=== PATIENT | female | born 1970 | race Hispanic/Latino ===

== ENCOUNTER 2018-10-22 19:15 | Outpatient (CLI) | payer MEDICAID ==
[2018-10-22] MEDS ORDERED: LACTATED RINGERS 1,000 ML IV ONE (20:11)
[2018-10-22 20:54] LABS: Bacteria,Urine 2+ /HPF (Negative); Bilirubin,Urine NEG (Negative); Blood,Urine NEG (Negative); Color,Urine Yellow (Yellow); Mucus,Urine FEW /HPF; Protein,Urine <15 mg/dL mg/dL (Negative); Urobilinogen,Urine < 2.0 mg/dL (<2.0)
[2018-10-22 23:49] VITALS: BP 91/54
--- NOTE | 2018-10-23 00:54 | Ultrasound Report ---
PROCEDURE: US OB LIMITED TECHNIQUE: Limited obstetrical ultrasound HISTORY: leaking fluid COMPARISONS: No prior for comparison FINDINGS: There is a single viable intrauterine in cephalic presentation. The heart rate is 125 bpm. The amniotic fluid index is mildly elevated at 25.9 cm. Largest pocket of fluid measures approximately 7.4 cm. No measurements obtained on this examination for dating. No evaluation of the anatomy. IMPRESSION: Limited obstetrical ultrasound. Single viable intrauterine in cephalic presentation. Amniotic fluid index is mildly elevated at 25.9 cm.. This document is electronically signed by Fabián Walters MD., October 23 2018 12:52:08 AM ET
[2018-10-23 01:18] LABS: Cannabinoid Screen,Urine PRESUMPTIVE NEGATIVE; Cocaine Screen,Urine PRESUMPTIVE NEGATIVE; Methadone Screen,Urine PRESUMPTIVE NEGATIVE; Opiate Screen,Urine PRESUMPTIVE NEGATIVE
[2018-10-23 02:48] LABS: Amphetamine Screen,Urine PRESUMPTIVE POSITIVE; Benzodiazepines Screen,Urine PRESUMPTIVE POSITIVE
== END 2018-10-23 00:20 | disposition home or self-care (01) ==
LOC: TRG 19:15
PROVIDERS: ATTEND Obstetrics & Gynecology
DX: O47.03 False labor before 37 completed weeks of gestation, third trimester (principal); O26.893 Other specified pregnancy related conditions, third trimester; M54.9 Dorsalgia, unspecified; Z3A.28 28 weeks gestation of pregnancy
CPT/HCPCS: 76815; 80307; 81001

== ENCOUNTER 2018-11-29 16:41 | Outpatient (CLI) | payer MEDICAID ==
[2018-11-29] MEDS ORDERED: LACTATED RINGERS 500 ML IV ONE (17:23)
[2018-11-29 18:36] LABS: Hematocrit 29.6 % (30.3-42.9); Hemoglobin 10.1 gm/dl (10.1-14.3); Mean Corpuscular HGB Conc 34 % (30-34); Mean Corpuscular Volume 96 fl (79-97); Platelet Count 165 K/mm3 (140-440); Red Blood Count 3.09 M/mm3 (3.65-5.03); Red Cell Distribution Width 13.2 % (13.2-15.2)
[2018-11-29 18:39] LABS: Bilirubin,Urine NEG (Negative); Blood,Urine NEG (Negative); Color,Urine Yellow (Yellow); Mucus,Urine FEW /HPF; Protein,Urine <15 mg/dL mg/dL (Negative); Urobilinogen,Urine < 2.0 mg/dL (<2.0)
[2018-11-29 18:45] LABS: Cannabinoid Screen,Urine PRESUMPTIVE NEGATIVE; Cocaine Screen,Urine PRESUMPTIVE NEGATIVE; Opiate Screen,Urine PRESUMPTIVE NEGATIVE
[2018-11-29 19:00] VITALS: BP 114/60
[2018-11-29 19:17] LABS: Amphetamine Screen,Urine PRESUMPTIVE POSITIVE; Benzodiazepines Screen,Urine PRESUMPTIVE POSITIVE; Methadone Screen,Urine PRESUMPTIVE POSITIVE
[2018-11-29 19:19] LABS: Alanine Aminotransferase 19 units/L (7-56); Uric Acid 4.1 mg/dL (3.5-7.6)
== END 2018-11-29 19:24 | disposition home or self-care (01) ==
LOC: TRG 16:41
PROVIDERS: ATTEND Obstetrics & Gynecology
DX: O47.03 False labor before 37 completed weeks of gestation, third trimester (principal); O13.3 Gestational [pregnancy-induced] hypertension without significant proteinuria, third trimester; Z90.89 Acquired absence of other organs; Z3A.34 34 weeks gestation of pregnancy
CPT/HCPCS: 36415; 59025; 80307; 81001; 82565; 83615; 84450; 84460; 84550; 85027

== ENCOUNTER 2018-12-13 17:17 | Outpatient (CLI) | payer MEDICAID ==
[2018-12-13] MEDS ORDERED: LACTATED RINGERS 500 ML IV ONE (17:50)
[2018-12-13 17:54] VITALS: BP 127/87
[2018-12-13 18:53] LABS: Benzodiazepines Screen,Urine PRESUMPTIVE NEGATIVE; Cannabinoid Screen,Urine PRESUMPTIVE NEGATIVE; Cocaine Screen,Urine PRESUMPTIVE NEGATIVE; Opiate Screen,Urine PRESUMPTIVE NEGATIVE
[2018-12-13 19:08] LABS: Bacteria,Urine 1+ /HPF (Negative); Bilirubin,Urine NEG (Negative); Blood,Urine NEG (Negative); Color,Urine Yellow (Yellow); Mucus,Urine FEW /HPF; Protein,Urine <15 mg/dL mg/dL (Negative); Urobilinogen,Urine < 2.0 mg/dL (<2.0)
[2018-12-13 19:16] LABS: Amphetamine Screen,Urine PRESUMPTIVE POSITIVE; Methadone Screen,Urine PRESUMPTIVE POSITIVE
--- NOTE | 2018-12-13 19:57 | Ultrasound Report ---
PROCEDURE: US OB BPP WO NON-STRESS TECHNIQUE: Limited ultrasound for BPP HISTORY: nonreactive NST COMPARISONS: Ultrasound OB 10/22/2018 FINDINGS: clinical Age : 36W 0 D Biophysical profile scoring [2]movement [2]tone [2]breathing [2]fluid 8/8 overall score Presentation: Cephalic Activity: Monitored Placental location: Anterior towards the fundus Cardiac motion: 151 BPM using M-mode doppler Amniotic Fluid Volume: Adequate IMPRESSION: Single viable at 36 weeks 0 days with 8/8 biophysical profile score This document is electronically signed by Cheri Hopkins MD., Dec 13 2018 07:55:27 PM ET
== END 2018-12-13 19:55 | disposition home or self-care (01) ==
LOC: TRG 17:17
PROVIDERS: ATTEND Obstetrics & Gynecology
DX: O47.03 False labor before 37 completed weeks of gestation, third trimester (principal); O13.3 Gestational [pregnancy-induced] hypertension without significant proteinuria, third trimester; Z3A.36 36 weeks gestation of pregnancy
CPT/HCPCS: 59025; 76819; 80307; 81001

== ENCOUNTER 2018-12-20 21:52 | Outpatient (CLI) | payer MEDICAID ==
[2018-12-20 23:08] LABS: Hematocrit 34.7 % (30.3-42.9); Mean Corpuscular HGB Conc 35 % (30-34); Mean Corpuscular Volume 94 fl (79-97); Platelet Count 150 K/mm3 (140-440); Red Blood Count 3.67 M/mm3 (3.65-5.03); Red Cell Distribution Width 12.7 % (13.2-15.2)
[2018-12-20 23:17] LABS: Bilirubin,Urine NEG (Negative); Blood,Urine NEG (Negative); Color,Urine Yellow (Yellow); Mucus,Urine FEW /HPF; Protein,Urine <15 mg/dL mg/dL (Negative); Urobilinogen,Urine < 2.0 mg/dL (<2.0)
[2018-12-20 23:38] LABS: Alanine Aminotransferase 23 units/L (7-56)
[2018-12-20] MEDS ORDERED: LACTATED RINGERS 1,000 ML IV SCH (23:45)
[2018-12-20 23:49] LABS: Benzodiazepines Screen,Urine PRESUMPTIVE NEGATIVE; Cannabinoid Screen,Urine PRESUMPTIVE NEGATIVE; Cocaine Screen,Urine PRESUMPTIVE NEGATIVE; Opiate Screen,Urine PRESUMPTIVE NEGATIVE
--- NOTE | 2018-12-21 00:04 | Ultrasound Report ---
PROCEDURE: US OB BPP WO NON-STRESS TECHNIQUE: Real-time limited sonographic examination was performed for evaluation of presentation fo r each fetus with image documentation (1 or more fetuses). HISTORY: well being COMPARISONS: None . FINDINGS: breathing movements: 2. movements: 2. posture and tone: 2. Qualitative amniotic fluid volume: 2. Total score 8/8. IMPRESSION: Normal biophysical profile. This document is electronically signed by Deep Spann MD., Dec 21 2018 12:03:05 AM ET
--- NOTE | 2018-12-21 00:04 | Ultrasound Report ---
PROCEDURE: US OB LIMITED TECHNIQUE: Real-time limited sonographic examination was performed for evaluation of presentation fo r each fetus with image documentation (1 or more fetuses). HISTORY: well being COMPARISONS: None . FINDINGS: Fetus is in a cephalic presentation. Heart rate is 129 bpm. Placenta is anterior and grade 1 without evidence of previa. Amniotic fluid index is 9.9 cm which is within normal limits. IMPRESSION: Fetus is in a cephalic presentation. Heart rate is 129 bpm. Placenta is anterior and grade 1 without evidence of previa. Amniotic fluid index is 9.9 cm which is within normal limits. This document is electronically signed by Deep Spann MD., Dec 21 2018 12:02:01 AM ET
[2018-12-21 00:08] LABS: Amphetamine Screen,Urine PRESUMPTIVE POSITIVE; Methadone Screen,Urine PRESUMPTIVE POSITIVE
[2018-12-21 00:09] VITALS: BP 107/63
== END 2018-12-20 22:00 | disposition home or self-care (01) ==
LOC: TRG 21:52 → EEVIPCON 21:52 → TRG 22:00
PROVIDERS: ATTEND Obstetrics & Gynecology
DX: O47.03 False labor before 37 completed weeks of gestation, third trimester (principal); O09.523 Supervision of elderly multigravida, third trimester; O99.343 Other mental disorders complicating pregnancy, third trimester; F41.9 Anxiety disorder, unspecified; F32.9 Major depressive disorder, single episode, unspecified; Z3A.36 36 weeks gestation of pregnancy
CPT/HCPCS: 36415; 59025; 76815; 76819; 80307; 81001; 82565; 83615; 84450; 84460; 84550; 85027; J7120

== ENCOUNTER 2018-12-24 18:36 | Inpatient (IN) | payer MEDICAID ==
[2018-12-24] MEDS ORDERED: LACTATED RINGERS 1,000 ML ONE (19:41)
[2018-12-24] MEDS ORDERED: LACTATED RINGERS 1,000 ML IV ONE (19:57)
[2018-12-24] MEDS ORDERED: PITOCin/NS 20 UNIT/1000ML DRIP 20 UNITS/1,000 ML BAG IV SCH (20:00)
[2018-12-24] MEDS ORDERED: ZOFRAN IV PRN (20:00)
[2018-12-24] MEDS ORDERED: BRETHINE SUB-Q PRN (20:00)
[2018-12-24] MEDS ORDERED: PITOCin/NS 30 UNIT/500ML 30 UNITS/500 ML BAG IV SCH (20:00)
[2018-12-24] MEDS ORDERED: SUBLIMAZE IV PRN (20:00)
[2018-12-24] MEDS ORDERED: MINERAL OIL PO PRN (20:00)
[2018-12-24] MEDS ORDERED: XYLOCAINE 2% INFILTRATI ONE (20:00)
[2018-12-24] MEDS ORDERED: LACTATED RINGERS 1,000 ML IV SCH (20:00)
--- NOTE | 2018-12-24 20:19 | History and Physical Report ---
History of Present Illness Date of examination: 12/24/18 (sent to Triage from [facility] for NST and eval of poss ROM) History of present illness: EDC Confirmation: 01/11/2019 Gestational Age: 7 4/7 weeks Past History : 6 Term Births: 2 Premature Births: 0 Living Children: 2 Para: 2 Mult. Births: 0 Prev : 0 Aborta: 3 Elect. Ab: 2 Spont. Ab: 1 # 1 Delivery date: 1988 Delivery type: TAB # 2 Delivery date: 1989 Delivery type: TAB # 3 Delivery date: 1999 Delivery type: SAB # 4 Delivery date: 02/08 Weeks Gestation: 40 Delivery type: vaginal Hours of labor: 12 Infant Sex: male weight: 8.38 Comments: Retained placenta # 5 Delivery date: 09/04/2008 Weeks Gestation: 40 Delivery type: Vaginal Hours of labor: 4 Anesthesia type: IV medication Delivery location: [facility] Infant Sex: male weight: 7.75 Comments: Patient on meethadone treatment throughout Past Medical History: Endometriosis chronic back pain hx drug abuse Past Surgical History: spinal fusion 05/2017 D&C - 2003 Septum repair - 1990 T&A 1974 Vaginal cyst removed 2004 abdominal surgery to for endometrosis - 2008 Past Medical History Surgery (Non-projection printer): spinal fusion 05/2017 D&C - 2003 Septum repair - 1990 T&A 1974 Vaginal cyst removed 2004 abdominal surgery to for endometrosis - 2008 Abnormal PAP: negative Social Hx: single Infection History Hx of STD: none HIV Risk Eval: low risk Hepatitis B Risk Eval: low risk Personal hx. of genital herpes: no Partner hx. of genital herpes: no Rash, Viral, or Febrile illness since last LMP? no Varicella/Chicken Pox Status: Previous Disease Genetic History ADVANCED MATERNAL AGE Congenital Heart Defect: Mom: no Dad: no Betzaida Disease: Mom: no Dad: no Thalassemia Mom: no Dad: no Neural Tube Defect Mom: no Dad: no Down's Syndrome Mom: no Dad: no Rm-Sachs Mom: no Dad: no Sickle Cell Disease/Trait Mom: no Dad: no Hemophilia Mom: no Dad: no Muscular Dystrophy Mom: no Dad: no Cystic Fibrosis Mom: no Dad: no [place] Chorea Mom: no Dad: no Mental Retardation Mom: no Dad: no Fragile X Mom: no Dad: no Other Genetic/Chromosomal Disorder Mom: no Dad: no Child w/other defect Mom: no Dad: no Enviromental Exposures Xray Exposure: no Medication, drug, or alcohol use since LMP: no Chemical/Other Exposure: no Exposure to Cat Liter: no Hx of Parvovirus (Fifth Disease): no Occupational Exposure to Children: none Active Medications (reviewed today): ZITHROMAX Z-DARIUSZ 250 MG ORAL TABLET (AZITHROMYCIN) 2 tabs po then 1 po qd Current Allergies (reviewed today): No known allergies Past History - Obstetrical History Expected Date of Delivery: 01/11/19 Actual Gestation: 37 Week(s) 3 Day(s) : 6 Para: 2 Hx # Term Pregnancies: 2 Number of Pregnancies: 0 Spontaneous Abortions: 1 Induced : 2 Number of Living Children: 2 Medications and Allergies Allergies Allergy/AdvReac Type Severity Reaction Status Date / Time erythromycin base Allergy Vomiting Verified 02/08/18 14:16 [From E-Mycin] sulfamethoxazole Allergy Swelling Verified 02/08/18 14:16 [From Bactrim] sumatriptan [From Imitrex] Allergy Unknown Verified 12/13/18 17:50 trimethoprim [From Bactrim] Allergy Swelling Verified 02/08/18 14:16 Home Medications Medication Instructions Recorded Confirmed Last Taken Type Butalb/Acetaminophen/Caffeine 1 cap PO Q6HR PRN 02/08/18 12/24/18 Unknown History [Fioricet 50-300-40 mg CAP] Aspirin [Aspir-Low] 1 tab PO DAILY 10/23/18 12/24/18 12/24/18 History Vit,Calc76/Iron/Folic 1 tab PO DAILY 10/23/18 12/24/18 12/24/18 History [Pnv 29-1 Tablet] Sertraline HCl [Zoloft] 50 mg PO BID 10/23/18 12/24/18 12/24/18 History Active Meds: Active Medications Lactated Ringer's (Lactated Ringers) 1,000 mls @ 999 mls/hr IV BOLUS ONE Stop: 12/24/18 20:57 - Vital Signs Vital signs: Vital Signs Pulse BP 90 109/74 12/24/18 19:16 12/24/18 19:16 Temp Pulse Resp BP Pulse Ox 98.6 F 90 18 109/74 12/24/18 19:21 12/24/18 19:21 12/24/18 19:21 12/24/18 19:21 - Physical Exam Breasts: Positive: deferred Cardiovascular: Regular rate, Normal S1, Normal S2 Lungs: Positive: Normal air movement Abdomen: Positive: normal appearance, soft, normal bowel sounds. Negative: distention, tenderness Genitourinary (Female): Positive: normal external genitalia Vulva: both: normal Vagina: Positive: normal moisture. Negative: discharge Cervix: Negative: lesion, discharge Uterus: Positive: normal size, normal contour Adnexa: both: normal Anus/Rectum: Positive: normal perianal skin, heme negative. Negative: rectal mass, hemorrhoids Extremities: Positive: normal Deep Tendon Reflex Grade: Normal +2 - Obstetrical FHR: category 2 (no decels FHR no variability) Uterine Contraction Monitor Mode: External Cervical Dilatation: 1 Cervical Effacement Percentage: 50 station: -4 Uterine Contraction Pattern: Irregular Uterine Tone Measurement Phase: Resting Uterine Contraction Intensity: Mild Results All other labs normal. GBS POSITIVE HBsAg Screen Negative Negative *1 RPR Non Reactive Non Reactive *2 Rubella Antibodies, IgG 24.20 index Immune >0.99 *3 Non-immune <0.90 Equivocal 0.90 - 0.99 Immune >0.99 ABO Grouping O *4 Rh Factor Positive *5 Please note: Prior records for this patient's ABO / Rh type are not available for additional verification. Antibody Screen Negative Negative *6 WBC 6.5 x10E3/uL 3.4-10.8 *7 RBC [L] 3.71 x10E6/uL 3.77-5.28 *8 Hemoglobin 11.7 g/dL 11.1-15.9 *9 Hematocrit 34.0 % 34.0-46.6 *10 MCV 92 fL 79-97 *11 MCH 31.5 pg 26.6-33.0 *12 MCHC 34.4 g/dL 31.5-35.7 *13 RDW 12.5 % 12.3-15.4 *14 Platelets 226 x10E3/uL 150-379 *15 Neutrophils 54 % Not Estab. *16 Lymphs 37 % Not Estab. *17 Monocytes 6 % Not Estab. *18 Eos 2 % Not Estab. *19 Basos 1 % Not Estab. *20 ! Immature Cells <No Reported Value> *21 Neutrophils (Absolute) 3.5 x10E3/uL 1.4-7.0 *22 Lymphs (Absolute) 2.4 x10E3/uL 0.7-3.1 *23 Monocytes(Absolute) 0.4 x10E3/uL 0.1-0.9 *24 Eos (Absolute) 0.1 x10E3/uL 0.0-0.4 *25 Baso (Absolute) 0.0 x10E3/uL 0.0-0.2 *26 ! Immature Granulocytes 0 % Not Estab. *27 ! Immature Grans (Abs) 0.0 x10E3/uL 0.0-0.1 *28 ! NRBC <No Reported Value> *29 Hematology Comments: <No Reported Value> *30 Tests: (2) Panel 264450 ([id number]) HIV Screen 4th Generation wRfx Non Reactive Non Reactive *31 Tests: (3) HCV Ab w/Rflx to Verification (751903) ! HCV Ab <0.1 s/co ratio 0.0-0.9 *32 Tests: (4) Comment: (266403) ! Comment: SPRCS *33 Non reactive HCV antibody screen is consistent with no HCV infection, unless recent infection is suspected or other evidence exists to indicate HCV infection. Tests: (5) Urine Culture, Routine (263331) Urine Culture, Routine Final report *34 Tests: (6) Result (025603) ! Result 1 No growth *35 Assessment and Plan 48yo @ 37w3d Non reassuring evaluation. Pt has a hx of PIH, drug abuse- now on methadone, GBS+. All orders in EMR. aware of admission. - Patient Problems (1) Non-reassuring status Onset Date: ~12/24/18 Current Visit: Yes Status: Acute Plan to address problem: Pt had an [facility] visit today. Her BPP 6/8 Zero for breathing. MARYAM 15. sent pt to L&D for NST. Non reactive. Spoke with she recommends delivery. (2) Methadone maintenance treatment complicating in third trimester Onset Date: ~12/24/18 Current Visit: Yes Status: Acute Plan to address problem: Pt takes her dose in the PM will order her medication (3) Elevated blood-pressure reading, without diagnosis of hypertension Onset Date: ~12/24/18 Current Visit: Yes Status: Acute Plan to address problem: Pt has a hx of PreE. 24hr urine collected by [facility] results pending Pt has had elevated BPs. PIH labs ordered. (4) Group B Streptococcus carrier state affecting Onset Date: ~12/24/18 Current Visit: Yes Status: Acute Plan to address problem: Will start ABX per protocol when pt is in active labor for GBS+
[2018-12-24 21:18] LABS: Benzodiazepines Screen,Urine PRESUMPTIVE NEGATIVE; Cannabinoid Screen,Urine PRESUMPTIVE NEGATIVE; Cocaine Screen,Urine PRESUMPTIVE NEGATIVE; Opiate Screen,Urine PRESUMPTIVE NEGATIVE
[2018-12-24 21:21] LABS: Bilirubin,Urine NEG (Negative); Blood,Urine NEG (Negative); Color,Urine Yellow (Yellow); Protein,Urine <15 mg/dL mg/dL (Negative); Urobilinogen,Urine < 2.0 mg/dL (<2.0)
[2018-12-24 21:27] LABS: Alanine Aminotransferase 18 units/L (7-56); Uric Acid 5.9 mg/dL (3.5-7.6)
[2018-12-24 21:37] LABS: Amphetamine Screen,Urine PRESUMPTIVE POSITIVE; Methadone Screen,Urine PRESUMPTIVE POSITIVE
[2018-12-24] MEDS ORDERED: AMBIEN PO PRN (21:54)
[2018-12-24] MEDS ORDERED: CERVIDIL VG ONE (22:00)
[2018-12-24 22:06] LABS: Basophils % (Auto) 0.5 % (0.0-1.8); Eosinophils # (Auto) 0.1 K/mm3 (0.0-0.4); Eosinophils % (Auto) 0.8 % (0.0-4.3); Hematocrit 31.1 % (30.3-42.9); Hemoglobin 10.9 gm/dl (10.1-14.3); Lymphocytes # (Auto) 1.8 K/mm3 (1.2-5.4); Lymphocytes % (Auto) 21.6 % (13.4-35.0); Mean Corpuscular HGB Conc 35 % (30-34); Mean Corpuscular Volume 95 fl (79-97); Monocytes # (Auto) 0.6 K/mm3 (0.0-0.8); Monocytes % (Auto) 7.3 % (0.0-7.3); Platelet Count 139 K/mm3 (140-440); Red Blood Count 3.27 M/mm3 (3.65-5.03)
[2018-12-25] MEDS ORDERED: AMPICILLIN/NS 2 GM/100 ML 2 GM/100 ML BAG IV ONE ×2 (00:19→01:00)
[2018-12-25] MEDS ORDERED: AMPICILLIN 2 GM in NACL 0.9% 50 ML IV ONE (00:38)
[2018-12-25] MEDS ORDERED: BENADRYL PO PRN (01:26)
[2018-12-25] MEDS ORDERED: PHENERGAN PO PRN (01:26)
[2018-12-25] MEDS ORDERED: ZOFRAN IV PRN (01:26)
[2018-12-25] MEDS ORDERED: TYLENOL PO PRN (01:26)
[2018-12-25] MEDS ORDERED: LANSINOH TP PRN (01:26)
[2018-12-25] MEDS ORDERED: NORCO 5/325 PO PRN (01:26)
[2018-12-25] MEDS ORDERED: DULCOLAX PR PRN (01:26)
[2018-12-25] MEDS ORDERED: MILK OF MAGNESIA PO PRN (01:26)
--- NOTE | 2018-12-25 01:38 | Procedure Note ---
OB Delivery Note - Delivery Date of Delivery: 12/25/18 [facility] Department: [facility] Estimated blood loss: 300cc - Vaginal Delivery presentation: vertex Delivery position: OA Intrapartum events: precipitous labor- <3hr, other(please specify) (Drug use- methadone tx) Delivery induction: cervidil Delivery monitor: external FHT, external uterine Route of delivery: Delivery placenta: spontaneous Delivery cord: 3 umbilical vessels Episiotomy: none Delivery laceration: 2nd degree Delivery repair: vicryl Anesthesia: local Delivery comments: Pt was OOB to toilet Had SROM C/O worsening pain and pressure. SVE 4,100,0 Cervidil removed. Pt given Fentanyl. Progressed rapidly to complete. live born female over intact perineum. Baby floppy slow to respond to normal interventions NICU called to room. Cord blood obtained. Placenta and membrane delivered complete and intact, 3 vessel cord. Pit IVFs. Repair of 2nd degree laceration over Lidocaine with 2-0 vicryl. 5,7,9 Cold stress. EBL 300, Wgt 5-7 Mom and baby remain LDR stable. - A at 1 minute: 5 at 5 minutes: 7 Infant Gender: Female (wgt 5-7 10 min 9)
[2018-12-25] MEDS ORDERED: SODIUM CHLORIDE FLUSH SYRINGE 10 ML IV NR (02:00)
[2018-12-25] MEDS: TUCKS PAD TP PRN ×2 (02:35→16:35)
[2018-12-25] MEDS: IBUPROFEN PO SCH ×3 (02:35→22:38)
--- NOTE | 2018-12-25 08:26 | Event Note ---
Date: 12/25/18 pt sleeping very soundly, awakened only to strong touch and calling her name multiple times. Pt states she goes to [facility] in [facility] daily to receive her methadone dose of 120mg. Phone number called - spoke with Dianne Valle LPN who confirmed her dose. States she last received a dose yesterday. New order in chart to continue same dose of methadone. Pt's s/o in room with infant, states he is going to get breakfast and doesn't want to leave alone in room with pt. Case management consult ordered.
[2018-12-25] MEDS: DOLOPHINE PO SCH (09:49)
[2018-12-25] MEDS ORDERED: DOLOPHINE PO SCH (10:00)
[2018-12-25 19:53] LABS: Hematocrit 27.7 % (30.3-42.9)
[2018-12-25] MEDS ORDERED: DERMOPLAST TP PRN (21:45)
[2018-12-26] MEDS: IBUPROFEN PO SCH ×5 (00:46→21:40)
[2018-12-26] MEDS ORDERED: M-M-R II VACCINE SUB-Q ONE (06:00)
[2018-12-26] MEDS ORDERED: BOOSTRIX IM ONE (06:00)
[2018-12-26] MEDS: DOLOPHINE PO SCH (10:39)
--- NOTE | 2018-12-26 13:58 | Progress Note ---
Assessment and Plan PPD1 Patient reports feeling well, no complaints. Fundus is firm, ML, U/1. Vaginal bleeding is minimal, patient denies any heavy bleeding or clots. She reports dull low back pain, controlled with medications. She denies any requests at this time. Patient states breast feeding is going well, no breast complaints. VSSAF. Continue pathway. Plan for discharge tomorrow AM. Subjective - Subjective Date of service: 12/26/18 Principal diagnosis: PPD1 Patient reports: appetite normal, voiding normally, pain well controlled, ambulating normally [place]: doing well Objective - Vital Signs Latest vital signs: Vital Signs Temp Pulse Resp BP BP Pulse Ox 12/26/18 08:05 98.3 F 58 L 16 123/80 97 12/26/18 01:20 98.2 F 98 H 20 128/78 97 12/25/18 16:33 20 12/25/18 16:19 98.4 F 61 20 134/80 96 Intake and Output 12/25/18 12/26/18 12/26/18 23:59 07:59 15:59 Intake Total 400 240 Balance 400 240 Intake: Oral 400 240 Other: Total, Intake Amount 200 240 # Voids Void 1 1 # Bowel Movements 1 - Exam Breasts: Present: normal Cardiovascular: Present: Regular rate, Normal S1, Normal S2 Lungs: Present: Clear to auscultation Abdomen: Present: normal appearance, soft, normal bowel sounds Vulva: both: normal Uterus: Present: normal, firm Extremities: Present: normal Incision: Present: normal, dry, intact - Labs Labs: Abnormal lab results 12/25/18 Range/Units 19:37 Hgb 10.0 L (10.1-14.3) gm/dl Hct 27.7 L (30.3-42.9) %
[2018-12-26] MEDS ORDERED: PRENATAL VITAMIN PO ONE (18:00)
[2018-12-26] MEDS: ZOLOFT PO SCH (21:42)
[2018-12-26] MEDS ORDERED: NON-FORMULARY (Sertraline Hcl [Zoloft] 50 MG) PO SCH (22:00)
--- NOTE | 2018-12-27 06:47 | Discharge Summary ---
Providers - Providers Date of Admission: 12/24/18 21:03 Date of discharge: 12/27/18 (pt agrees with d/c) Attending physician: MENDOZA BARKSADLE 12/25/18 08:19 Consult to Case Management [CONS] Routine Services Needed at Discharge: Rechecker Notified:: yes Phone number called:: [phone] Was contact made?: Yes If yes, spoke with:: Lakeisha Time called:: 08:47 Comment:: hx drug use, currently on methadone. + UDS on admission for am phetamine Primary care physician: MENDOZA BARKSDALE Hospitalization Reason for admission: induction of labor, IUP at term Delivery: Episiotomy: none Laceration: 2nd degree Incision: normal, dry, intact Other procedures: none complications: none Discharge diagnosis: IUP at term delivered baby: female Hospital course: uncomplicated vaginal delivery Pt awake Breast feeding NB VSS BP 140-130/80-70 FF below umb Lochia small Perineum slight swelling intact H&H10/27 No s/s of anemia. Doing well s/p vag delivery. P: d/c with instructions RTO 4 weeks PP care. Continue to f/u with clinic for methadone. Condition at discharge: Good Disposition: DC-01 TO HOME OR SELFCARE - Discharge Diagnoses (1) Methadone maintenance treatment complicating in third trimester Status: Acute Comment: f/u with outpt clinic (2) Elevated blood-pressure reading, without diagnosis of hypertension Status: Acute Comment: rto one week BP check (3) Normal spontaneous vaginal delivery Status: Acute Comment: RTO 4 weeks PP care Plan - Provider Discharge Summary Activity: routine, no sex for 6 weeks, no heavy lifting 4 weeks, no strenuous exercise Diet: routine Instructions: routine Additional instructions: [] Smoking cessation referral if applicable(refer to patient education folder for contact #) [] Refer to [facility] Booklet Call your doctor immediately for: * Fever > 100.5 * Heavy vaginal bleeding ( >1 pad per hour) * Severe persistent headache * Shortness of breath * Reddened, hot, painful area to leg or breast * Drainage or odor from incision. * Keep incision clean and dry at all times and follow doctor's instructions regarding bathing/showering - Follow up plan Follow up: MENDOZA BARKSDALE MD [Primary Care Provider] - 7 Days (Congratulations! Please call [phone] to schedule your blood pressure check in 1 week and your visit in 4 weeks. Call with any concerns.)
[2018-12-27] MEDS ORDERED: BABY ASPIRIN PO SCH (10:00)
[2018-12-27] MEDS: DOLOPHINE PO SCH (10:32)
[2018-12-27] MEDS: IBUPROFEN PO SCH ×3 (10:33→18:17)
[2018-12-27] MEDS: ZOLOFT PO SCH ×2 (10:33→22:08)
--- NOTE | 2018-12-27 16:08 | Event Note ---
Date: 12/27/18 (RN called pt c/o UTI symptoms) Will collect urine for UA And tx with results
[2018-12-27 17:37] LABS: Bilirubin,Urine NEG (Negative); Blood,Urine LG (Negative); Color,Urine Yellow (Yellow); Mucus,Urine FEW /HPF; Protein,Urine <15 mg/dL mg/dL (Negative); Urobilinogen,Urine < 2.0 mg/dL (<2.0)
[2018-12-28 03:59] VITALS: BP 115/80
== END 2018-12-28 06:30 | disposition home or self-care (01) | DRG 775 ==
LOC: TRG 18:36 → LD 21:03 → OB 12-25 02:10
PROVIDERS: ADMIT Obstetrics & Gynecology; ATTEND Obstetrics & Gynecology
PROC: 10E0XZZ Delivery of Products of Conception, External Approach (ICD-10-PCS; principal; 2018-12-25)
PROC: 0KQM0ZZ Repair Perineum Muscle, Open Approach (ICD-10-PCS; 2018-12-25)
PROC: 3E0P7VZ Introduction of Hormone into Female Reproductive, Via Natural or Artificial Opening (ICD-10-PCS; 2018-12-25)
PROC: 3E0234Z Introduction of Serum, Toxoid and Vaccine into Muscle, Percutaneous Approach (ICD-10-PCS; 2018-12-26)
DX: O62.3 Precipitate labor (principal); O70.1 Second degree perineal laceration during delivery; O75.89 Other specified complications of labor and delivery; R03.0 Elevated blood-pressure reading, without diagnosis of hypertension; O99.324 Drug use complicating childbirth; O99.824 Streptococcus B carrier state complicating childbirth; O76 Abnormality in fetal heart rate and rhythm complicating labor and delivery; F19.90 Other psychoactive substance use, unspecified, uncomplicated; Z79.82 Long term (current) use of aspirin; Z3A.37 37 weeks gestation of pregnancy; Z37.0 Single live birth; Z79.899 Other long term (current) drug therapy; Z23 Encounter for immunization
CPT/HCPCS: 36415; 59200; 80307; 81001; 82565; 83615; 84450; 84460; 84550; 85014; 85018; 85025; 86850; 86900; 86901; 88305; 88307; 90715; G0378; J0290; J2590; J3010; J7120

== ENCOUNTER 2020-05-20 08:30 | Outpatient (CLI) | payer OTHER ==
--- NOTE | 2020-05-20 10:22 | Vascular Lab Report ---
ULTRASOUND ABDOMINAL AORTA INDICATION: Aneurysm of arteries, asymptomatic varicose. Additional history: Aneurysm of unspecified artery on pr ior CTA, occasional abdominal pain. TECHNIQUE: B-mode and Doppler imaging was used to evaluate the aorta. COMPARISON: None available. FINDINGS: Proximal Abdominal Aorta: 2.5 x 2.3 cm Mid Abdominal Aorta: 2.2 x 1.8 cm Distal Abdominal Aorta: 1.5 x 1.4 cm Right Iliac Artery: 1.1 x 0.9 cm Left Iliac Artery: 0.9 x 0.9 cm Additional Findings: The celiac trunk and SMA are patent without a distinct aneurysm. IMPRESSION: 1. No sonographic evidence for AAA or aneurysm of the other visualized abdominal arteries described a mariana. Signer Name: Mike Meng MD Signed: 05/20/2020 10:17 AM Workstation Name: [id number]
== END 2020-05-20 08:31 | disposition home or self-care (01) ==
LOC: VAS 08:30
PROVIDERS: ATTEND Surgery Vascular Surgery
DX: I83.90 Asymptomatic varicose veins of unspecified lower extremity (principal); I72.8 Aneurysm of other specified arteries
CPT/HCPCS: 93979